=== PATIENT | male | born 1995 | race Caucasian/White ===

== ENCOUNTER 2024-04-03 12:43 | Outpatient (CLI) | payer OTHER | END 2024-04-03 12:44 | disposition home or self-care (01) | LOC: SCSRAD 12:43 | PROVIDERS: ATTEND Nurse Practitioner Family | DX: S59.902A Unspecified injury of left elbow, initial encounter (principal); S52.125A Nondisplaced fracture of head of left radius, initial encounter for closed fracture; M25.422 Effusion, left elbow ==